=== PATIENT | male | born 1940 | race Caucasian/White ===

== ENCOUNTER 2016-11-15 14:45 | Emergency (ER) | payer OTHER ==
[~2016-11-15] VITALS: Ht 180.3 cm; Wt 88.5 kg
--- NOTE | ~2016-11-15 | EKG ---
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 : 1940 Requested By: Og Larsen Order Number: [id number] MD: Cornelio Pelletier Measurements Intervals [place] Rate: 84 P: 66 SD: 200 QRS: -19 QRSD: 169 T: 104 QT: 423 QTc: 501 Interpretive Statements Sinus rhythm Left bundle branch block Compared to ECG 07/23/2003 23:20:34 Left bundle-branch block now present Left-axis deviation no longer present Left ventricular hypertrophy no longer present Electronically Signed On 11-15-2016 17:16:24 CDT by Cornelio Pelletier [email or web address] <ELECTRONICALLY SIGNED> By: Cornelio Pelletier MD 11/15/16 [id number] Cornelio Pelletier MD /SHAHIDA
[~2016-11-15 14:45] MED LIST: CHLORTHALIDONE25 MG PO; CIPRO500 MG PO; COZAAR 50 MG TA50 M2 PO; FLAGYL500 MG PO; LEVEMIR SUBQ; LEVOTHYROXIN0.112 M1 PO; METFORMIN HCL500 MG PO; NOVOLOG100 UNIT/1 SUBQ; POTASSIUM20 PO; XANAX 0.5 MG0.5 MG PO
[2016-11-15 16:57] LABS: HEMATOCRIT 33.4 % (42.0-52.0); MCH 28.4 pg (26.0-34.0); MCV 86.1 fL (80.0-100.0); PLATELET COUNT 350 thou/uL (150-400); RBC 3.88 mil/uL (4.50-6.00); RDW 21.8 % (10.5-14.5); WBC 12.5 thou/uL (4.0-11.0)
[2016-11-15 16:58] LABS: MANUAL DIFF YES
[2016-11-15 17:08] LABS: ANION GAP 8 mmol/L (7-16); BUN 24 mg/dL (7-18); CALCIUM 9.4 mg/dL (8.5-10.1); CHLORIDE 102 mmol/L (98-107); CO2 29 mmol/L (21-32); CREATININE 1.3 mg/dL (0.7-1.3); GLUCOSE 249 mg/dL (74-106); POTASSIUM 3.8 mmol/L (3.5-5.1); SODIUM 139 mmol/L (136-145)
[2016-11-15 17:20] LABS: NT-PRO BRAIN NAT PEPTIDE 323 pg/mL (<300); TROPONIN-I < 0.04 ng/mL (<0.04-0.07)
[2016-11-15 17:34] LABS: URINE BILIRUBIN NEGATIVE (Negative); URINE BLOOD 2+ (Negative); URINE COLOR YELLOW; URINE GLUCOSE-RANDOM* 3+ (Negative); URINE KETONES NEGATIVE (Negative); URINE NITRITE NEGATIVE (Negative); URINE PROTEIN (DIPSTICK) TRACE (Negative); URINE UROBILINOGEN 0.2 E.U./dl (0.2-1.0)
[2016-11-15 17:49] LABS: CASTS None Seen /LPF (None Seen); CRYSTALS None Seen /LPF (None Seen); SQUAMOUS 0-3 Few /LPF (0-3); URINE WBC 0-5 Rare /HPF (0-5)
[2016-11-15 17:54] LABS: ABSOLUTE NEUTROPHILS 10.8 thou/uL (1.4-8.2); ANISOCYTOSIS 1+; TOTAL CELL COUNT 100
[2016-11-15 18:54] VITALS: BP 148/64
== END 2016-11-15 18:54 | disposition left against medical advice (07) ==
LOC: ER 14:45
PROVIDERS: Nurse Practitioner
DX: S01.81XA Laceration without foreign body of other part of head, initial encounter (principal); R55 Syncope and collapse; I10 Essential (primary) hypertension; E11.9 Type 2 diabetes mellitus without complications; Z88.5 Allergy status to narcotic agent; Z79.4 Long term (current) use of insulin; W18.09XA Striking against other object with subsequent fall, initial encounter; Y93.89 Activity, other specified; Y92.89 Other specified places as the place of occurrence of the external cause; Y99.8 Other external cause status